=== PATIENT | female | born 1965 | race African-American/Black ===

== ENCOUNTER 2021-11-13 09:49 | Outpatient (REF) | payer MEDICARE, MEDICAID, SELFPAY | END 2021-11-13 09:50 | disposition home or self-care (01) | LOC: HO.BBR 09:49 | PROVIDERS: PCP Nurse Practitioner Family; Visit Provider Internal Medicine Medical Oncology | DX: D75.1 Secondary polycythemia (principal) | CPT/HCPCS: 85018; 99195 ==

== ENCOUNTER 2022-02-13 09:48 | Outpatient (REF) | payer MEDICARE, MEDICAID, SELFPAY | END 2022-02-13 09:49 | disposition home or self-care (01) | LOC: HO.BBR 09:48 | PROVIDERS: Visit Provider Internal Medicine Medical Oncology | DX: D75.1 Secondary polycythemia (principal) | CPT/HCPCS: 85018; 99195 ==

== ENCOUNTER 2022-05-19 12:52 | Outpatient (REF) | payer MEDICARE, MEDICAID, SELFPAY | END 2022-05-19 12:53 | disposition home or self-care (01) | LOC: HO.BBR 12:52 | PROVIDERS: Visit Provider Internal Medicine Medical Oncology | DX: D75.1 Secondary polycythemia (principal) | CPT/HCPCS: 85018; 99195 ==

== ENCOUNTER 2022-08-18 13:39 | Outpatient (REF) | payer MEDICARE, MEDICAID, SELFPAY | END 2022-08-18 13:40 | disposition home or self-care (01) | LOC: HO.BBR 13:39 | PROVIDERS: Visit Provider Internal Medicine Medical Oncology | DX: D75.1 Secondary polycythemia (principal) | CPT/HCPCS: 85018; 99195 ==

== ENCOUNTER 2022-11-24 11:52 | Outpatient (REF) | payer MEDICARE, MEDICAID, SELFPAY | END 2022-11-24 11:53 | disposition home or self-care (01) | LOC: HO.BBR 11:52 | PROVIDERS: Visit Provider Internal Medicine Medical Oncology | DX: D75.1 Secondary polycythemia (principal) | CPT/HCPCS: 85014; 85018; 99195 ==

== ENCOUNTER 2023-02-26 10:47 | Outpatient (REF) | payer MEDICARE, MEDICAID, SELFPAY | END 2023-02-26 10:48 | disposition home or self-care (01) | LOC: HO.BBR 10:47 | PROVIDERS: Visit Provider Internal Medicine Medical Oncology | DX: D75.1 Secondary polycythemia (principal) | CPT/HCPCS: 85018; 99195 ==

== ENCOUNTER 2023-05-31 11:48 | Outpatient (REF) | payer MEDICARE, MEDICAID, SELFPAY | END 2023-05-31 11:49 | disposition home or self-care (01) | LOC: HO.BBR 11:48 | PROVIDERS: PCP Nurse Practitioner Family; Visit Provider Internal Medicine Medical Oncology | DX: D75.1 Secondary polycythemia (principal) | CPT/HCPCS: 85014; 85018; 99195 ==

== ENCOUNTER 2023-10-08 12:55 | Outpatient (REF) | payer MEDICARE, MEDICAID, SELFPAY | END 2023-10-08 12:56 | disposition home or self-care (01) | LOC: HO.BBR 12:55 | PROVIDERS: PCP Nurse Practitioner Family; Visit Provider Internal Medicine Medical Oncology | DX: D75.1 Secondary polycythemia (principal) | CPT/HCPCS: 85014; 85018; 99195 ==

== ENCOUNTER 2025-05-11 14:04 | Outpatient (REF) | payer MEDICARE, MEDICAID, SELFPAY | END 2025-05-11 14:05 | disposition home or self-care (01) | LOC: HO.BBR 14:04 | PROVIDERS: Visit Provider Internal Medicine Medical Oncology | DX: D75.1 Secondary polycythemia (principal) | CPT/HCPCS: 85018; 99195 ==